=== PATIENT | female | born 1940 | race Caucasian/White ===

== ENCOUNTER 2021-11-20 13:04 | Inpatient (IN) ==
[2021-11-20] MEDS ORDERED: 0.9 % Sodium Chloride 1,000 ML ONE (13:51)
[2021-11-20] MEDS ORDERED: 0.9 % Sodium Chloride 1,000 ML IVC ONE (13:55)
[2021-11-20 14:12] LABS: Basophils % 0.3 %; Eosinophils # 0.1 K/mcL (0.0-0.6); Eosinophils % 0.6 %; Hematocrit 26.9 % (35.3-44.9); Hemoglobin 8.6 g/dL (11.5-15.4); Immature Granulocytes % 0.5 % (0-4); Lymphocytes # 0.7 K/mcL (0.6-4.6); Lymphocytes % 6.3 %; Mean Corpuscular Volume 103.1 fL (83.0-100.0); Mean Platelet Volume 11.1 fL (9.4-12.4); Monocytes # 0.7 K/mcL (0.0-1.3); Monocytes % 6.7 %; Neutrophils # 9.3 K/mcL (1.6-8.9); Platelet Count 203 K/mcL (140-400); Red Blood Count 2.61 M/mcL (3.82-4.97); Red Cell Distribution Width 13.3 % (11.5-14.5); Segmented Neutrophils % 85.6 %; White Blood Count 10.8 K/mcL (4.3-11.1)
[2021-11-20 14:19] LABS: INR 1.8; Prothrombin Time 19.6 Seconds (9.4-12.1)
[2021-11-20 14:39] LABS: Albumin 3.7 g/dL (3.5-5.7); Albumin/Globulin Ratio 1.5 (1.1-2.2); Bilirubin,Total 0.4 mg/dL (0.3-1.0); Globulin 2.5 g/dL (2.4-3.5); Magnesium 1.9 mg/dL (1.6-2.6); Potassium 4.8 mEq/L (3.5-5.1); Total Protein 6.2 g/dL (6.4-8.9)
[2021-11-20] MEDS ORDERED: Naloxone 0.4 MG/ML INJ IVP PRN (15:27)
[2021-11-20] MEDS ORDERED: Ondansetron ODT 4 MG TAB.RAPDIS SL PRN (15:27)
[2021-11-20] MEDS ORDERED: Melatonin 3 MG TABLET PO PRN (15:27)
[2021-11-20] MEDS: 0.9 % Sodium Chloride 1,000 ML IVC SCH (16:26)
[2021-11-20] MEDS ORDERED: Dextrose Gel 15 GM/37.5 ML TUBE PO PRN ×2 (18:41)
[2021-11-20] MEDS: Pantoprazole 40 MG VIAL IVP SCH (18:52)
[2021-11-20 22:56] LABS: Hematocrit 22.2 % (35.3-44.9); Hemoglobin 7.2 g/dL (11.5-15.4)
[2021-11-20 23:39] LABS: Estimated Average Glucose 128 mg/dl; Hemoglobin A1C 6.1 %
[2021-11-21] LABS: Albumin 3.7 g/dL (3.5-5.7); Albumin/Globulin Ratio 1.4 (1.1-2.2); Bilirubin,Direct 0.1 mg/dL (0.0-0.2); Bilirubin,Indirect 0.3 mg/dL (0.0-1.0); Bilirubin,Total 0.4 mg/dL (0.3-1.0); Globulin 2.6 g/dL (2.4-3.5); Phosphorous 3.1 mg/dL (2.7-4.5); Thyroid Stimulating Hormone 3.7 mcIU/mL (0.340-5.600); Total Protein 6.3 g/dL (6.4-8.9)
[2021-11-21 00:22] LABS: Folate 11.8 ng/mL (3.0-16.0)
[2021-11-21] MEDS: 0.9 % Sodium Chloride 1,000 ML IVC SCH (01:43)
[2021-11-21 05:05] LABS: Basophils % 0.6 %; Eosinophils # 0.1 K/mcL (0.0-0.6); Eosinophils % 1.9 %; Hematocrit 20.2 % (35.3-44.9); Hemoglobin 6.6 g/dL (11.5-15.4); Immature Granulocytes % 0.6 % (0-4); Lymphocytes % 18.2 %; Mean Corpuscular HGB Conc 32.7 g/dL (31.6-35.5); Mean Corpuscular Hemoglobin 33.5 pg (28.0-33.3); Mean Corpuscular Volume 102.5 fL (83.0-100.0); Mean Platelet Volume 10.9 fL (9.4-12.4); Monocytes # 0.5 K/mcL (0.0-1.3); Monocytes % 9.7 %; Neutrophils # 3.7 K/mcL (1.6-8.9); Platelet Count 155 K/mcL (140-400); Red Blood Count 1.97 M/mcL (3.82-4.97); Red Cell Distribution Width 13.8 % (11.5-14.5); White Blood Count 5.3 K/mcL (4.3-11.1)
[2021-11-21 05:16] LABS: INR 1.6; Prothrombin Time 17.4 Seconds (9.4-12.1)
[2021-11-21 05:23] LABS: Calcium 8.3 mg/dL (8.6-10.3)
[2021-11-21] MEDS: Pantoprazole 40 MG VIAL IVP SCH ×2 (06:27→17:31)
[2021-11-21] MEDS ORDERED: 0.9 % Sodium Chloride 250 ML IVC SCH (08:00)
[2021-11-21] MEDS ORDERED: Cyanocobalamin (B-12) 1,000 MCG/ML VIAL IM STA (08:50)
[2021-11-21] MEDS: Insulin LISPRO 300 UNITS/3 ML VIAL SUBQ SCH ×3 (09:30→17:25)
[2021-11-21] MEDS: Ascorbic Acid 500 MG TABLET PO SCH (11:41)
[2021-11-21 12:07] LABS: Hematocrit 23.9 % (35.3-44.9); Hemoglobin 7.8 g/dL (11.5-15.4)
[2021-11-21] MEDS ORDERED: Lidocaine -MPF 2% 2 ML VIAL ONE (13:45)
[2021-11-21] MEDS ORDERED: *HR* Propofol 200 MG/20 ML VIAL IVP ONE (13:45)
[2021-11-21 18:50] LABS: Hematocrit 24.8 % (35.3-44.9); Hemoglobin 8.2 g/dL (11.5-15.4)
[2021-11-21] MEDS ORDERED: allopurinoL 100 MG TABLET PO SCH (21:00)
[2021-11-22 02:10] LABS: Basophils % 0.4 %; Eosinophils # 0.2 K/mcL (0.0-0.6); Eosinophils % 3.9 %; Hematocrit 24.8 % (35.3-44.9); Immature Granulocytes % 0.4 % (0-4); Lymphocytes # 0.7 K/mcL (0.6-4.6); Lymphocytes % 14.4 %; Mean Corpuscular HGB Conc 32.3 g/dL (31.6-35.5); Mean Corpuscular Hemoglobin 32.3 pg (28.0-33.3); Mean Platelet Volume 10.9 fL (9.4-12.4); Monocytes # 0.5 K/mcL (0.0-1.3); Monocytes % 10.6 %; Neutrophils # 3.6 K/mcL (1.6-8.9); Platelet Count 135 K/mcL (140-400); Red Blood Count 2.48 M/mcL (3.82-4.97); Red Cell Distribution Width 16.8 % (11.5-14.5); Segmented Neutrophils % 70.3 %; White Blood Count 5.1 K/mcL (4.3-11.1)
[2021-11-22 02:30] LABS: Calcium 8.8 mg/dL (8.6-10.3); Potassium 3.7 mEq/L (3.5-5.1)
[2021-11-22] MEDS: Insulin LISPRO 300 UNITS/3 ML VIAL SUBQ SCH (07:49)
[2021-11-22] MEDS: Ascorbic Acid 500 MG TABLET PO SCH (08:36)
[2021-11-22] MEDS ORDERED: Cyanocobalamin (B-12) 1,000 MCG TABLET PO SCH (09:00)
[2021-11-22 10:55] VITALS: BP 155/82; PULSE 66; TEMP 98.1; O2SAT 94
== END 2021-11-22 12:28 | disposition home or self-care (01) | DRG 384 ==
LOC: EMEROOARM 13:04 → 2NENU 13:04 → SUATTDRO 16:24 → 2NENU 17:05
PROVIDERS: ADMIT Hospitalist; ATTEND Internal Medicine
PROC: ENDOEBX (2021-11-21 14:10)